=== PATIENT | male | born 1955 | race Caucasian/White ===

== ENCOUNTER 2018-06-24 10:20 | Emergency (ER) | payer MEDICARE, OTHER ==
[~2018-06-24] VITALS: Ht 172.7 cm; Wt 70.0 kg
[~2018-06-24 10:20] MED LIST: HYDR-3972; METH-233; METO10TA3; OMEP-84; ZOF4T PO
[2018-06-24 10:42] VITALS: BP 145/80
[2018-06-24] MEDS ORDERED: ACYC-202 PO (12:21)
[2018-06-24] MEDS ORDERED: dexamethasone sod phosphate 10mg/ml inj PO STA (12:21)
[2018-06-24] MEDS ORDERED: AMOX-422 PO (12:21)
== END 2018-06-24 12:38 | disposition home or self-care (01) ==
LOC: ER 10:20
DX: B02.9 Zoster without complications (principal); K04.7 Periapical abscess without sinus; H92.03 Otalgia, bilateral; G89.29 Other chronic pain
CPT/HCPCS: 99283; J1100

== ENCOUNTER 2021-10-12 18:56 | Emergency (ER) | payer MEDICARE ==
[~2021-10-12] VITALS: Ht 172.7 cm; Wt 77.3 kg
[2021-10-12 19:37] LABS: BASOPHILS % (AUTO) 0.4 % (0-1); EOSINOPHILS # (AUTO) 0.2 X10'3 (0-0.9); EOSINOPHILS % (AUTO) 2.6 % (0-6); HEMATOCRIT 39.4 % (42.0-52.0); HEMOGLOBIN 13.5 g/dl (14.0-17.9); LYMPHOCYTES # (AUTO) 2.5 X10'3 (1.1-4.8); LYMPHOCYTES % (AUTO) 37.2 % (21-51); MEAN CORPUSCULAR HEMOGLOBIN 29.7 PG (27.0-31.0); MEAN CORPUSCULAR HGB CONC 34.2 g/dL (33.0-36.5); MEAN CORPUSCULAR VOLUME 86.7 FL (78-98); MEAN PLATELET VOLUME 7.4 FL (7.4-10.4); MONOCYTES # (AUTO) 0.5 X10'3 (0-0.9); MONOCYTES % (AUTO) 7.4 % (2-12); NEUTROPHILS # (AUTO) 3.6 X10'3 (1.8-7.7); NEUTROPHILS % (AUTO) 52.4 % (42-75); PLATELET COUNT 250 X10'3 (140-440); RED BLOOD COUNT 4.54 X10'6 (4.70-6.10); RED CELL DISTRIBUTION WIDTH 13.5 % (11.5-14.5); WHITE BLOOD COUNT 6.8 X10'3 (4.5-11.0)
[2021-10-12 19:45] LABS: ALANINE AMINOTRANSFERASE 18 U/L (12-78); ALBUMIN 4.1 G/DL (3.4-5.0); ALBUMIN/GLOBULIN RATIO 1.1 (1.1-1.5); ALKALINE PHOSPHATASE 61 IU/L (46-116); ANION GAP 10 (8-16); ASPARTATE AMINO TRANSFERASE 21 U/L (10-37); BILIRUBIN,TOTAL 0.4 MG/DL (0.1-1.0); BLOOD UREA NITROGEN 15 MG/DL (7-18); BUN/CREATININE RATIO 17.4 (5.4-32.0); CALCIUM 8.8 MG/DL (8.5-10.1); CHLORIDE 100 MMOL/L (99-107); CREATININE 0.86 MG/DL (0.60-1.10); GLUCOSE 104 MG/DL (70-104); SODIUM 137 MMOL/L (135-145); TOTAL CARBON DIOXIDE 26.8 MMOL/L (24-32); TOTAL PROTEIN 7.7 G/DL (6.4-8.2); eGFR 89 ML/MIN
--- NOTE | 2021-10-12 20:00 | NUR ---
Patient up to the bathroom.
[2021-10-12 21:57] VITALS: BP 153/99
[2021-10-13] MEDS ORDERED: AMLO5TAB21 PO (00:12)
== END 2021-10-13 00:27 | disposition home or self-care (01) ==
LOC: ER 18:56
DX: I10 Essential (primary) hypertension (principal); G89.29 Other chronic pain; K22.0 Achalasia of cardia; Z79.899 Other long term (current) drug therapy
CPT/HCPCS: 36415; 71045; 80053; 83880; 84484; 85025; 93005; 99285

== ENCOUNTER 2024-05-18 14:34 | Inpatient (IN) | payer MEDICARE ==
[~2024-05-18] VITALS: Ht 175.3 cm; Wt 81.8 kg
[~2024-05-18 14:34] MED LIST changes: +AMLO5TAB21 PO
[2024-05-18 17:23] LABS: BASOPHILS % (AUTO) 0.8 % (0-1); EOSINOPHILS # (AUTO) 0.1 X10'3 (0-0.9); EOSINOPHILS % (AUTO) 2.6 % (0-6); HEMATOCRIT 38.9 % (42.0-52.0); HEMOGLOBIN 13.2 g/dl (14.0-17.9); LYMPHOCYTES # (AUTO) 1.5 X10'3 (1.1-4.8); LYMPHOCYTES % (AUTO) 30.9 % (21-51); MEAN CORPUSCULAR HGB CONC 33.9 g/dL (33.0-36.5); MEAN CORPUSCULAR VOLUME 88.6 FL (78-98); MEAN PLATELET VOLUME 6.8 FL (7.4-10.4); MONOCYTES # (AUTO) 0.5 X10'3 (0-0.9); MONOCYTES % (AUTO) 9.6 % (2-12); NEUTROPHILS # (AUTO) 2.7 X10'3 (1.8-7.7); NEUTROPHILS % (AUTO) 56.1 % (42-75); PLATELET COUNT 224 X10'3 (140-440); RED BLOOD COUNT 4.39 X10'6 (4.70-6.10); WHITE BLOOD COUNT 4.9 X10'3 (4.5-11.0)
[2024-05-18 17:37] LABS: ALANINE AMINOTRANSFERASE 14 U/L (12-78); ALBUMIN 4.3 G/DL (3.4-5.0); ALBUMIN/GLOBULIN RATIO 1.3 (1.1-1.5); ALKALINE PHOSPHATASE 62 IU/L (46-116); ANION GAP 9 (8-16); ASPARTATE AMINO TRANSFERASE 17 U/L (10-37); BILIRUBIN,TOTAL 0.6 MG/DL (0.1-1.0); BLOOD UREA NITROGEN 16 MG/DL (7-18); BUN/CREATININE RATIO 16.3 (10.0-20.0); CALCIUM 8.9 MG/DL (8.5-10.1); CHLORIDE 102 MMOL/L (99-107); CREATININE 0.98 MG/DL (0.60-1.10); GLUCOSE 93 MG/DL (70-104); SODIUM 140 MMOL/L (135-145); TOTAL PROTEIN 7.7 G/DL (6.4-8.2); eCRCL 72 ML/MIN; eGFR 76 ML/MIN
[2024-05-18] MEDS ORDERED: iohexol 300mg/ml 100ml inj. ONE (18:13)
[2024-05-18] MEDS: clindamycin 150mg capsule PO ONE (19:24)
[2024-05-18] MEDS: normal saline 1000ML IV soln IVB ONE (19:55)
[2024-05-18] MEDS: LIDOcaine 1% 30ml preserv. free vial SQ STA (19:55)
[2024-05-18] MEDS ORDERED: BUPR8TAB4 SL (20:51)
[2024-05-18] MEDS ORDERED: FLO0.4C PO (20:51)
[2024-05-18] MEDS ORDERED: LOSA50TA64 PO (20:53)
[2024-05-18] MEDS ORDERED: magnesium Cl slow-release 64mg tablet PO PRN (21:20)
[2024-05-18] MEDS ORDERED: potassium Cl 40MEQ/1/2NS 520ml 520 ML IV PRN (21:20)
[2024-05-18] MEDS ORDERED: magnesium sulf-water 2g/50mL 50 ML IV PRN (21:20)
[2024-05-18] MEDS ORDERED: potassium Cl 20 mEq SR tablet PO PRN ×2 (21:20)
[2024-05-18] MEDS ORDERED: magnesium sulf-water 4G/100mL 100 ML IV PRN (21:20)
[2024-05-18] MEDS ORDERED: morphine 2 MG/ML inj. syringe IV PRN (21:20)
[2024-05-18] MEDS ORDERED: HYDROcodone/acetaminophen 5mg/325mg tablet PO PRN (21:20)
[2024-05-18] MEDS ORDERED: acetaminophen 325mg tablet PO PRN (21:20)
[2024-05-18] MEDS: tamsulosin 0.4mg capsule PO STA (22:33)
[2024-05-18] MEDS: magnesium hydroxide 30ml (MOM) UD suspension PO SCH (22:33)
[2024-05-18] MEDS: sodium chloride 0.45% 1,000 ML IV SCH (22:36)
[2024-05-19] MEDS: clindamycin 300mg/D5W 50mL 50 ML IV SCH (02:37)
[2024-05-19] MEDS: ondansetron/PF 4mg/2ml inj IV PRN (07:37)
[2024-05-19] MEDS: K and/or MAG REPLACEMENT MC SCH (08:00)
[2024-05-19] MEDS ORDERED: tamsulosin 0.4mg capsule PO SCH (08:00)
[2024-05-19 08:27] LABS: BASOPHILS % (AUTO) 0.8 % (0-1); EOSINOPHILS # (AUTO) 0.1 X10'3 (0-0.9); HEMATOCRIT 35.2 % (42.0-52.0); LYMPHOCYTES # (AUTO) 1.1 X10'3 (1.1-4.8); LYMPHOCYTES % (AUTO) 30.3 % (21-51); MEAN CORPUSCULAR HEMOGLOBIN 30.2 PG (27.0-31.0); MEAN CORPUSCULAR HGB CONC 34.1 g/dL (33.0-36.5); MEAN CORPUSCULAR VOLUME 88.6 FL (78-98); MEAN PLATELET VOLUME 7.1 FL (7.4-10.4); MONOCYTES # (AUTO) 0.4 X10'3 (0-0.9); MONOCYTES % (AUTO) 11.1 % (2-12); NEUTROPHILS % (AUTO) 53.8 % (42-75); PLATELET COUNT 194 X10'3 (140-440); RED BLOOD COUNT 3.97 X10'6 (4.70-6.10); RED CELL DISTRIBUTION WIDTH 13.5 % (11.5-14.5); WHITE BLOOD COUNT 3.8 X10'3 (4.5-11.0)
[2024-05-19 09:03] LABS: ALBUMIN 3.5 G/DL (3.4-5.0); ANION GAP 4 (8-16); BLOOD UREA NITROGEN 17 MG/DL (7-18); BUN/CREATININE RATIO 19.1 (10.0-20.0); CALCIUM 8.1 MG/DL (8.5-10.1); CHLORIDE 103 MMOL/L (99-107); CREATININE 0.89 MG/DL (0.60-1.10); GLUCOSE 97 MG/DL (70-104); MAGNESIUM 2.2 MG/DL (1.5-2.4); PHOSPHORUS 3.3 MG/DL (2.3-4.5); POTASSIUM 4.3 MMOL/L (3.5-5.1); SODIUM 136 MMOL/L (135-145); TOTAL CARBON DIOXIDE 29.2 MMOL/L (24-32); eCRCL 79 ML/MIN; eGFR 85 ML/MIN
[2024-05-19 09:32] LABS: PROTHROMBIN TIME 10.9 SECONDS (9.0-12.0)
[2024-05-19] MEDS ORDERED: acetaminophen 325mg tablet PO PRN (11:15)
[2024-05-19 11:30] VITALS: RESP 18
[2024-05-19] MEDS: losartan 50mg tablet PO SCH (11:31)
[2024-05-19] MEDS: acetaminophen 325mg tablet PO PRN (11:32)
[2024-05-19] MEDS ORDERED: magnesium citrate 296ml oral solution PO PRN (12:50)
[2024-05-19] MEDS ORDERED: magnesium hydroxide 30ml (MOM) UD suspension PO PRN (12:50)
[2024-05-19] MEDS ORDERED: BUPRENORPHINE HCL 2 MG SL SCH ×2 (13:00→14:11)
[2024-05-19] MEDS: docusate sod 100mg capsule PO ONE (13:07)
[2024-05-19] MEDS ORDERED: ondansetron 4mg rapidly disintigrating tab PO SCH (14:00)
[2024-05-19] MEDS: BUPRENORPHINE HCL 8 MG SL SCH (14:27)
[2024-05-19 18:00] VITALS: BP 139/72; TEMP 98.3; O2SAT 98
[2024-05-19 20:00] VITALS: RESP 17; O2SAT 96
[2024-05-19] MEDS: docusate sod 100mg capsule PO SCH (20:00)
[2024-05-19] MEDS: tamsulosin 0.4mg capsule PO SCH (20:03)
[2024-05-19] MEDS: amLODIPine 5mg tablet PO SCH (20:07)
[2024-05-19 22:00] VITALS: BP 129/75; RESP 18; TEMP 97.7; O2SAT 94
[2024-05-20] MEDS: HYDROcodone/acetaminophen 10/325mg tab PO PRN (05:18)
[2024-05-20 05:28] LABS: BASOPHILS % (AUTO) 0.6 % (0-1); EOSINOPHILS # (AUTO) 0.2 X10'3 (0-0.9); EOSINOPHILS % (AUTO) 4.2 % (0-6); HEMATOCRIT 36.5 % (42.0-52.0); HEMOGLOBIN 12.7 g/dl (14.0-17.9); LYMPHOCYTES # (AUTO) 1.5 X10'3 (1.1-4.8); LYMPHOCYTES % (AUTO) 37.8 % (21-51); MEAN CORPUSCULAR HEMOGLOBIN 30.9 PG (27.0-31.0); MEAN CORPUSCULAR HGB CONC 34.8 g/dL (33.0-36.5); MEAN CORPUSCULAR VOLUME 88.6 FL (78-98); MEAN PLATELET VOLUME 7.3 FL (7.4-10.4); MONOCYTES # (AUTO) 0.4 X10'3 (0-0.9); MONOCYTES % (AUTO) 10.6 % (2-12); NEUTROPHILS # (AUTO) 1.8 X10'3 (1.8-7.7); NEUTROPHILS % (AUTO) 46.8 % (42-75); PLATELET COUNT 214 X10'3 (140-440); RED BLOOD COUNT 4.12 X10'6 (4.70-6.10); RED CELL DISTRIBUTION WIDTH 13.3 % (11.5-14.5); WHITE BLOOD COUNT 3.9 X10'3 (4.5-11.0)
[2024-05-20 05:41] LABS: ALBUMIN 3.7 G/DL (3.4-5.0); ANION GAP 5 (8-16); BLOOD UREA NITROGEN 14 MG/DL (7-18); BUN/CREATININE RATIO 16.7 (10.0-20.0); CALCIUM 8.8 MG/DL (8.5-10.1); CHLORIDE 105 MMOL/L (99-107); CREATININE 0.84 MG/DL (0.60-1.10); GLUCOSE 88 MG/DL (70-104); MAGNESIUM 2.3 MG/DL (1.5-2.4); POTASSIUM 4.3 MMOL/L (3.5-5.1); SODIUM 139 MMOL/L (135-145); TOTAL CARBON DIOXIDE 28.6 MMOL/L (24-32); eCRCL 84 ML/MIN; eGFR > 90 ML/MIN
[2024-05-20 06:00] VITALS: BP 129/66; RESP 18; TEMP 97.2; O2SAT 99
[2024-05-20 08:27] VITALS: PULSE 51
[2024-05-20 10:00] VITALS: BP 120/73; RESP 18; TEMP 97.4; O2SAT 96
[2024-05-20] MEDS ORDERED: [UNRECOGNIZED DRUG - OTHER] PO (10:37)
[2024-05-20] MEDS ORDERED: CLIN-104 PO (10:37)
== END 2024-05-20 13:35 | disposition home or self-care (01) | DRG 603 ==
LOC: ER 14:34 → ED HOLD 21:42 → SUR 3N 05-19 11:23
PROVIDERS: ADMIT Student in an Organized Health Care Education/Training Program; ATTEND Family Medicine
PROC: 0W9F3ZZ Drainage of Abdominal Wall, Percutaneous Approach (ICD-10-PCS; principal; 2024-05-18)
PROC: BW211ZZ Computerized Tomography (CT Scan) of Abdomen and Pelvis using Low Osmolar Contrast (ICD-10-PCS; 2024-05-18)
DX: L02.216 Cutaneous abscess of umbilicus (principal); I10 Essential (primary) hypertension; K42.9 Umbilical hernia without obstruction or gangrene; I95.9 Hypotension, unspecified; G89.29 Other chronic pain; Z85.46 Personal history of malignant neoplasm of prostate; Z88.8 Allergy status to other drugs, medicaments and biological substances; Z79.899 Other long term (current) drug therapy
CPT/HCPCS: 36415; 74177; 80048; 80053; 83605; 83735; 84100; 84145; 85025; 85610; 87040; 87070; 87075; 87081; 97116; 97161; 99285; A6258; A6407; A6449; G0378; J2405; J3490; J7030; Q9967

== ENCOUNTER 2024-06-11 11:01 | Inpatient (IN) | payer MEDICARE ==
[~2024-06-11] VITALS: Ht 172.7 cm; Wt 81.8 kg
[~2024-06-11 11:01] MED LIST changes: -AMLO5TAB21 PO; +BUPR8TAB4 SL; +FLO0.4C PO; +LOSA50TA64 PO; +[UNRECOGNIZED DRUG - OTHER] PO
[2024-06-11 11:30] LABS: BASOPHILS % (AUTO) 0.8 % (0-1); EOSINOPHILS # (AUTO) 0.1 X10'3 (0-0.9); HEMATOCRIT 35.7 % (42.0-52.0); HEMOGLOBIN 12.3 g/dl (14.0-17.9); LYMPHOCYTES # (AUTO) 1.3 X10'3 (1.1-4.8); LYMPHOCYTES % (AUTO) 33.6 % (21-51); MEAN CORPUSCULAR HEMOGLOBIN 30.7 PG (27.0-31.0); MEAN CORPUSCULAR HGB CONC 34.5 g/dL (33.0-36.5); MEAN PLATELET VOLUME 7.3 FL (7.4-10.4); MONOCYTES # (AUTO) 0.4 X10'3 (0-0.9); MONOCYTES % (AUTO) 11.1 % (2-12); NEUTROPHILS % (AUTO) 51.5 % (42-75); PLATELET COUNT 182 X10'3 (140-440); RED BLOOD COUNT 4.01 X10'6 (4.70-6.10); RED CELL DISTRIBUTION WIDTH 13.4 % (11.5-14.5); WHITE BLOOD COUNT 3.9 X10'3 (4.5-11.0)
[2024-06-11 11:42] LABS: ANION GAP 4 (8-16); BLOOD UREA NITROGEN 18 MG/DL (7-18); BUN/CREATININE RATIO 20.9 (10.0-20.0); CALCIUM 8.7 MG/DL (8.5-10.1); CHLORIDE 102 MMOL/L (99-107); CREATININE 0.86 MG/DL (0.60-1.10); GLUCOSE 102 MG/DL (70-104); MAGNESIUM 2.3 MG/DL (1.5-2.4); POTASSIUM 4.8 MMOL/L (3.5-5.1); PRO BRAIN NATRIURETIC PEPTIDE 488 PG/ML (0-125); SODIUM 138 MMOL/L (135-145); TOTAL CARBON DIOXIDE 31.6 MMOL/L (24-32); eCRCL 80 ML/MIN; eGFR 88 ML/MIN
[2024-06-11] MEDS ORDERED: potassium Cl 40MEQ/1/2NS 520ml 520 ML IV PRN (12:15)
[2024-06-11] MEDS ORDERED: ondansetron/PF 4mg/2ml inj IV PRN (12:15)
[2024-06-11] MEDS ORDERED: magnesium Cl slow-release 64mg tablet PO PRN (12:15)
[2024-06-11] MEDS ORDERED: magnesium sulf-water 4G/100mL 100 ML IV PRN (12:15)
[2024-06-11] MEDS ORDERED: magnesium sulf-water 2g/50mL 50 ML IV PRN (12:15)
[2024-06-11] MEDS ORDERED: potassium Cl 20 mEq SR tablet PO PRN ×2 (12:15)
[2024-06-11] MEDS: PERFLUTREN PROTEIN-A MICROSPHR (Optison) 0.22 MG/ML 3ML VIAL IV ONE (12:30)
[2024-06-11] MEDS: LORazepam 0.5 MG tablet PO ONE (19:55)
[2024-06-11] MEDS: acetaminophen 325mg tablet PO PRN (19:56)
[2024-06-11] MEDS: K and/or MAG REPLACEMENT MC SCH (20:01)
[2024-06-11] MEDS ORDERED: temazepam 15mg capsule PO PRN (21:00)
[2024-06-11 22:09] LABS: BILIRUBIN,URINE NEGATIVE (Neg); CLARITY,URINE CLEAR (Clear); COLOR,URINE YELLOW (Yellow); GLUCOSE, URINE NEGATIVE (Neg); KETONES,URINE NEGATIVE (Neg); LEUKOCYTE ESTERASE ,URINE NEGATIVE (Neg); NITRITES, URINE NEGATIVE (Neg); OCCULT BLOOD,URINE NEGATIVE (Neg); PROTEIN,URINE NEGATIVE (Neg); UROBILINOGEN,URINE 0.2 E.U/dL (0.2-1.0)
[2024-06-11 22:12] LABS: UA COLLECTION TYPE URINAL
[2024-06-11] MEDS: tamsulosin 0.4mg capsule PO ONE (23:34)
[2024-06-12 03:32] LABS: BASOPHILS % (AUTO) 0.7 % (0-1); EOSINOPHILS # (AUTO) 0.2 X10'3 (0-0.9); EOSINOPHILS % (AUTO) 4.1 % (0-6); HEMOGLOBIN 11.2 g/dl (14.0-17.9); LYMPHOCYTES # (AUTO) 1.7 X10'3 (1.1-4.8); LYMPHOCYTES % (AUTO) 40.6 % (21-51); MEAN CORPUSCULAR HEMOGLOBIN 30.8 PG (27.0-31.0); MEAN CORPUSCULAR VOLUME 90.5 FL (78-98); MEAN PLATELET VOLUME 7.9 FL (7.4-10.4); MONOCYTES # (AUTO) 0.4 X10'3 (0-0.9); MONOCYTES % (AUTO) 10.2 % (2-12); NEUTROPHILS # (AUTO) 1.9 X10'3 (1.8-7.7); NEUTROPHILS % (AUTO) 44.4 % (42-75); PLATELET COUNT 175 X10'3 (140-440); RED BLOOD COUNT 3.65 X10'6 (4.70-6.10); RED CELL DISTRIBUTION WIDTH 13.7 % (11.5-14.5); WHITE BLOOD COUNT 4.2 X10'3 (4.5-11.0)
[2024-06-12 03:46] LABS: ALBUMIN 3.4 G/DL (3.4-5.0); ANION GAP 4 (8-16); BLOOD UREA NITROGEN 17 MG/DL (7-18); BUN/CREATININE RATIO 19.5 (10.0-20.0); CALCIUM 8.1 MG/DL (8.5-10.1); CHLORIDE 106 MMOL/L (99-107); CREATININE 0.87 MG/DL (0.60-1.10); GLUCOSE 92 MG/DL (70-104); MAGNESIUM 2.2 MG/DL (1.5-2.4); POTASSIUM 4.4 MMOL/L (3.5-5.1); SODIUM 141 MMOL/L (135-145); eCRCL 79 ML/MIN; eGFR 87 ML/MIN
[2024-06-12] MEDS: acetaminophen 325mg tablet PO PRN (07:11)
[2024-06-12 08:20] VITALS: BP 138/55; PULSE 37; RESP 17; TEMP 98.2; O2SAT 98
[2024-06-12] MEDS ORDERED: Buprenorphine Hcl 2 MG SL SCH (10:26)
[2024-06-12 11:00] VITALS: BP 143/89; PULSE 76; RESP 12; TEMP 97.9; O2SAT 95
[2024-06-12] MEDS: BUPRENORPHINE HCL 8 MG SL SCH (11:08)
[2024-06-12 14:54] LABS: THYROID STIMULATING HORMONE 1.84 ulU/ml (0.34-4.50)
[2024-06-12 15:00] VITALS: BP 159/80; PULSE 72; RESP 18; TEMP 97.3; O2SAT 97
[2024-06-12 18:00] VITALS: BP 140/50; PULSE 74; RESP 18; TEMP 97.3; O2SAT 99
[2024-06-12] MEDS: magnesium sulf-water 2g/50mL 50 ML IV ONE (19:28)
[2024-06-12 20:00] VITALS: RESP 18; O2SAT 99
[2024-06-12] MEDS: magnesium oxide 400mg tablet PO SCH (21:02)
[2024-06-12 22:00] VITALS: BP 144/82; PULSE 51; RESP 18; TEMP 97.6; O2SAT 96
[2024-06-12] MEDS: tamsulosin 0.4mg capsule PO SCH (22:02)
[2024-06-13] VITALS (8 sets, daily range): BP systolic 114–155; BP diastolic 58–72; PULSE 39–83; RESP 12–22; TEMP 96.4–97.3; O2SAT 96–99
[2024-06-13] MEDS: LORazepam 0.5 MG tablet PO ONE (02:03)
[2024-06-13 07:38] LABS: BASOPHILS % (AUTO) 0.5 % (0-1); EOSINOPHILS # (AUTO) 0.2 X10'3 (0-0.9); EOSINOPHILS % (AUTO) 3.6 % (0-6); HEMATOCRIT 35.6 % (42.0-52.0); HEMOGLOBIN 12.1 g/dl (14.0-17.9); LYMPHOCYTES # (AUTO) 1.8 X10'3 (1.1-4.8); MEAN CORPUSCULAR HEMOGLOBIN 30.7 PG (27.0-31.0); MEAN CORPUSCULAR VOLUME 90.1 FL (78-98); MEAN PLATELET VOLUME 7.6 FL (7.4-10.4); MONOCYTES # (AUTO) 0.5 X10'3 (0-0.9); MONOCYTES % (AUTO) 10.5 % (2-12); NEUTROPHILS # (AUTO) 2.2 X10'3 (1.8-7.7); NEUTROPHILS % (AUTO) 47.4 % (42-75); PLATELET COUNT 192 X10'3 (140-440); RED BLOOD COUNT 3.95 X10'6 (4.70-6.10); RED CELL DISTRIBUTION WIDTH 13.4 % (11.5-14.5); WHITE BLOOD COUNT 4.6 X10'3 (4.5-11.0)
[2024-06-13] MEDS: losartan 50mg tablet PO SCH (07:40)
[2024-06-13 08:17] LABS: ALBUMIN 3.7 G/DL (3.4-5.0); ANION GAP 7 (8-16); BLOOD UREA NITROGEN 17 MG/DL (7-18); BUN/CREATININE RATIO 19.8 (10.0-20.0); CALCIUM 8.4 MG/DL (8.5-10.1); CHLORIDE 104 MMOL/L (99-107); CHOL/HDL RATIO 3.2 (0.00-4.99); CHOLESTEROL 192 MG/DL (0-200); CREATININE 0.86 MG/DL (0.60-1.10); GLUCOSE 99 MG/DL (70-104); HDL CHOLESTEROL 60 MG/DL (35-60); LDL CHOLESTEROL 119 MG/DL (50-100); MAGNESIUM 2.2 MG/DL (1.5-2.4); POTASSIUM 4.1 MMOL/L (3.5-5.1); SODIUM 140 MMOL/L (135-145); TOTAL CARBON DIOXIDE 28.9 MMOL/L (24-32); TRIGLYCERIDES 62 MG/DL (20-135); eCRCL 80 ML/MIN; eGFR 88 ML/MIN
[2024-06-13] MEDS ORDERED: nitroGLYCERIN 0.4mg SUBLingual tab SL PRN (17:20)
[2024-06-13] MEDS ORDERED: aminophylline 250mg/10ml inj. IV PRN (17:20)
[2024-06-13] MEDS ORDERED: metoprolol tartrate 1mg/ml inj IV PRN (17:20)
[2024-06-13] MEDS: LORazepam 1 MG tablet PO PRN (17:40)
[2024-06-14] VITALS (13 sets, daily range): BP systolic 95–168; BP diastolic 57–85; PULSE 39–100; RESP 12–18; TEMP 97.1–97.6; O2SAT 91–99
[2024-06-14 07:57] LABS: BASOPHILS % (AUTO) 0.5 % (0-1); EOSINOPHILS # (AUTO) 0.2 X10'3 (0-0.9); HEMATOCRIT 33.5 % (42.0-52.0); HEMOGLOBIN 11.5 g/dl (14.0-17.9); LYMPHOCYTES # (AUTO) 1.7 X10'3 (1.1-4.8); LYMPHOCYTES % (AUTO) 35.5 % (21-51); MEAN CORPUSCULAR HEMOGLOBIN 30.6 PG (27.0-31.0); MEAN CORPUSCULAR HGB CONC 34.3 g/dL (33.0-36.5); MEAN CORPUSCULAR VOLUME 89.3 FL (78-98); MEAN PLATELET VOLUME 7.5 FL (7.4-10.4); MONOCYTES # (AUTO) 0.5 X10'3 (0-0.9); MONOCYTES % (AUTO) 10.6 % (2-12); NEUTROPHILS # (AUTO) 2.4 X10'3 (1.8-7.7); NEUTROPHILS % (AUTO) 49.4 % (42-75); PLATELET COUNT 187 X10'3 (140-440); RED BLOOD COUNT 3.74 X10'6 (4.70-6.10); RED CELL DISTRIBUTION WIDTH 13.3 % (11.5-14.5); WHITE BLOOD COUNT 4.8 X10'3 (4.5-11.0)
[2024-06-14 08:16] LABS: ALBUMIN 3.4 G/DL (3.4-5.0); ANION GAP 6 (8-16); BLOOD UREA NITROGEN 14 MG/DL (7-18); BUN/CREATININE RATIO 17.5 (10.0-20.0); CALCIUM 8.3 MG/DL (8.5-10.1); CHLORIDE 107 MMOL/L (99-107); GLUCOSE 92 MG/DL (70-104); MAGNESIUM 2.1 MG/DL (1.5-2.4); POTASSIUM 4.1 MMOL/L (3.5-5.1); SODIUM 142 MMOL/L (135-145); TOTAL CARBON DIOXIDE 28.8 MMOL/L (24-32); eCRCL 86 ML/MIN; eGFR > 90 ML/MIN
[2024-06-14] MEDS: regadenoson 0.4mg/5ml syringe IV PRN (09:37)
== END 2024-06-14 16:53 | disposition home or self-care (01) | DRG 310 ==
LOC: ER 11:01 → ED HOLD 12:18 → PCU 3S 06-12 08:11
PROVIDERS: ADMIT Internal Medicine; ATTEND Internal Medicine
PROC: 4A02XM4 Measurement of Cardiac Total Activity, External Approach (ICD-10-PCS; principal; 2024-06-14)
PROC: 3E033HZ Introduction of Radioactive Substance into Peripheral Vein, Percutaneous Approach (ICD-10-PCS; 2024-06-14)
DX: R00.1 Bradycardia, unspecified (principal); I49.3 Ventricular premature depolarization; M54.59 Other low back pain; E78.5 Hyperlipidemia, unspecified; I10 Essential (primary) hypertension; G89.29 Other chronic pain; Z85.46 Personal history of malignant neoplasm of prostate; Z88.8 Allergy status to other drugs, medicaments and biological substances; T50.7X5A Adverse effect of analeptics and opioid receptor antagonists, initial encounter; Y92.9 Unspecified place or not applicable
CPT/HCPCS: 36415; 71045; 78452; 80048; 80061; 81003; 83735; 83880; 84443; 84484; 85025; 87081; 93005; 93017; 93306; 99285; A9500; G0378; J2785

== ENCOUNTER 2024-08-24 13:03 | Emergency (ER) | payer MEDICARE ==
[~2024-08-24] VITALS: Ht 172.7 cm; Wt 84.1 kg
[~2024-08-24 13:03] MED LIST changes: -HYDR-3972; -METH-233; -METO10TA3; -OMEP-84; -ZOF4T PO; -[UNRECOGNIZED DRUG - OTHER] PO
[2024-08-24 13:20] VITALS: BP 157/92; PULSE 69; RESP 16; TEMP 97.8; O2SAT 97
[2024-08-24 14:02] LABS: BILIRUBIN,URINE NEGATIVE (Neg); CLARITY,URINE CLEAR (Clear); COLOR,URINE YELLOW (Yellow); GLUCOSE, URINE NEGATIVE (Neg); KETONES,URINE NEGATIVE (Neg); LEUKOCYTE ESTERASE ,URINE NEGATIVE (Neg); NITRITES, URINE NEGATIVE (Neg); OCCULT BLOOD,URINE NEGATIVE (Neg); PROTEIN,URINE NEGATIVE (Neg); UROBILINOGEN,URINE 0.2 E.U/dL (0.2-1.0)
[2024-08-24 14:11] LABS: UA COLLECTION TYPE NON-SPECIFIED
[2024-08-24 14:34] LABS: BASOPHILS % (AUTO) 0.5 % (0-1); EOSINOPHILS # (AUTO) 0.3 X10'3 (0-0.9); EOSINOPHILS % (AUTO) 3.8 % (0-6); HEMATOCRIT 36.8 % (42.0-52.0); HEMOGLOBIN 12.5 g/dl (14.0-17.9); LYMPHOCYTES # (AUTO) 1.5 X10'3 (1.1-4.8); MEAN CORPUSCULAR HEMOGLOBIN 30.7 PG (27.0-31.0); MEAN CORPUSCULAR HGB CONC 34.1 g/dL (33.0-36.5); MEAN PLATELET VOLUME 7.3 FL (7.4-10.4); MONOCYTES # (AUTO) 0.6 X10'3 (0-0.9); MONOCYTES % (AUTO) 8.2 % (2-12); NEUTROPHILS # (AUTO) 4.7 X10'3 (1.8-7.7); NEUTROPHILS % (AUTO) 66.5 % (42-75); PLATELET COUNT 217 X10'3 (140-440); RED BLOOD COUNT 4.09 X10'6 (4.70-6.10); RED CELL DISTRIBUTION WIDTH 13.3 % (11.5-14.5)
[2024-08-24 14:48] LABS: ALANINE AMINOTRANSFERASE 35 U/L (12-78); ALBUMIN 4.2 G/DL (3.4-5.0); ALBUMIN/GLOBULIN RATIO 1.2 (1.1-1.5); ALKALINE PHOSPHATASE 69 IU/L (46-116); ANION GAP 4 (8-16); ASPARTATE AMINO TRANSFERASE 45 U/L (10-37); BILIRUBIN,TOTAL 0.4 MG/DL (0.1-1.0); BLOOD UREA NITROGEN 19 MG/DL (7-18); BUN/CREATININE RATIO 24.4 (10.0-20.0); CALCIUM 8.9 MG/DL (8.5-10.1); CHLORIDE 103 MMOL/L (99-107); CREATININE 0.78 MG/DL (0.60-1.10); GLUCOSE 94 MG/DL (70-104); LIPASE 29 U/L (16-77); POTASSIUM 4.4 MMOL/L (3.5-5.1); SODIUM 136 MMOL/L (135-145); TOTAL CARBON DIOXIDE 29.3 MMOL/L (24-32); TOTAL PROTEIN 7.7 G/DL (6.4-8.2); eCRCL 88 ML/MIN; eGFR > 90 ML/MIN
== END 2024-08-24 16:28 | disposition home or self-care (01) ==
LOC: ER 13:03
DX: I10 Essential (primary) hypertension (principal); Z88.8 Allergy status to other drugs, medicaments and biological substances; Z79.899 Other long term (current) drug therapy
CPT/HCPCS: 36415; 80053; 81003; 83690; 85025; 99283

== ENCOUNTER 2024-11-06 17:05 | Emergency (ER) | payer MEDICARE ==
[~2024-11-06] VITALS: Ht 172.7 cm; Wt 85.5 kg
[~2024-11-06 17:05] MED LIST changes: -FLO0.4C PO; +TAMS-55 PO
[2024-11-06 17:11] VITALS: BP 143/86; PULSE 65; TEMP 98.7; O2SAT 99
[2024-11-06 18:27] VITALS: RESP 16
--- NOTE | 2024-11-06 19:39 | Physician Documentation ---
History of Present Illness ~ Chief Complaint: Groin Pain Stated Complaint: "I GOT HERNIAS" Time Seen by MD: 18:27 OK to notify your PCP?: Yes Primary Medical Doctor: Dr. Adolfo Rodrigues Primary Mode of Arrival: POV, Ambulatory Exam Limitations: no limitations HPI This is a 61-year-old male who comes in complaining of right inguinal and umbilical hernia. The patient was states that is he has been seen by his primary care physician for this and has imaging ordered in the coming week for hopefully eventually referral to a surgeon. The patient was states that he was sick recently with a virus and coughing made his hernias worse. He says he was able to reduce his hernia. You complains of right inguinal hernia and an umbilical hernia. He denies redness swelling or warmth with the area. He denies nausea or vomiting. He denies obstipation Medication Reconciliation Allergies: Coded Allergies: amlodipine (Verified Allergy, Intermediate, NASIR LEG SWELLING, 11/06/24) Scheduled Buprenorphine Hcl (Buprenorphine Hcl), 2 MG SL QID, (Reported) Losartan Potassium (Losartan Potassium), 1 TAB PO DAILY, (Reported) Tamsulosin Hcl* (Flomax*), 1 CAP PO DAILY, (Reported) Past Medical History Past Medical History: Hypertension, Chronic Pain Past Surgical History: no surgical history Patient History: FH: heart disease MOTHER, Alcohol Use: None Drug Use: none Lives with: Spouse Lives In: Home Physical Exam Vital Signs: Temperature: 98.7, Source: Temporal, Heart Rate: 65, Respiratory Rate: 16, BP: 143/86, Pulse Oximetry: 99, Weight: 85.550 Pulse Oximetry Reflects: adequate oxygenation General Appearance: alert, WD/WN, no apparent distress Respiratory: no respiratory distress Chest: no accessory muscle use Gastrointestinal To inspection of the abdomen no obvious distention. The patient was have an obvious umbilical hernia that it was reducible. No tenderness to palpation x4 quadrants. Normoactive bowel sounds x4 quadrants. No rigidity rebound or guarding. With the patient has a right inguinal hernia that is reducible. Progress Results/Orders Reviewed/noted all lab results: Yes Results/Orders Vital Signs 11/06/24 11/06/24 17:11 18:27 Temp 98.7 Pulse 65 Resp 18 16 B/P (MAP) 143/86 Pulse Ox 99 Medical Decision Making Findings There has been with the patient at length and told him all his hernias are reducible and he has not no signs of incarceration or entrapment. At this point I see no need for imaging as I have no clinical concern for small bowel obstruction. That is with the patient was that he will need to continue to follow up with the primary care physician who already ordered imaging for him a nd discuss referral to a surgeon. I am keeping were a hernia belt and try not to strain while he is lifting. You can return to the ER for any worsening or concerning symptoms. Additional Comment Reducible right inguinal hernia. Reducible umbilical hernia. No evidence of incarceration or entrapment of the hernias Departure Disposition: HOME / SELF CARE / HOMELESS Impression: Primary Impression: Right inguinal hernia Additional Impression: Umbilical hernia Condition: Stable Discharge Instructions: Hernia Additional Instructions: At this point there was no evidence of incarceration of your hernias as they are reducible meaning you can pushed him back up into your abdomen. You need to follow up with the primary care physician for referral to a surgeon to have these surgically addressed. If you do have increased pain, redness or swelling over any of the sites of the hernia with the nausea or vomiting you need to return to the ER immediately Referrals: NO PRIMARY CARE PROVIDER (PCP) Signature Scribe Signature: No scribe Attestation: The note accurately reflects work and decisions made by me.Matt PERSON 11/06/24 19:39 MATT RODRIGUEZ Nov 06, 2024 19:39
== END 2024-11-06 19:49 | disposition home or self-care (01) ==
LOC: ER 17:06
DX: K40.90 Unilateral inguinal hernia, without obstruction or gangrene, not specified as recurrent (principal); K42.9 Umbilical hernia without obstruction or gangrene; I10 Essential (primary) hypertension; Z88.8 Allergy status to other drugs, medicaments and biological substances
CPT/HCPCS: 99281